=== PATIENT | female | born 1995 | race American Indian/Alaskan Native ===

== ENCOUNTER 2022-01-27 09:05 | Emergency (ER) | payer MEDICAID ==
[2022-01-27 09:58] LABS: Bilirubin,Urine NEG (Negative); Blood,Urine SM (Negative); Color,Urine Yellow (Yellow); Urobilinogen,Urine < 2.0 mg/dL (<2.0); WBC,Urine < 1.0 /HPF (0.0-6.0)
[2022-01-27 10:06] LABS: RBC,Urine < 1.0 /HPF (0.0-6.0)
[2022-01-27] MEDS ORDERED: MORPHINE 4 MG/1 ML INJ IV ONE (12:30)
[2022-01-27] MEDS ORDERED: ONDANSETRON 4 MG/2 ML INJ IV ONE (12:31)
[2022-01-27 13:29] LABS: Hematocrit 38.3 % (30.3-42.9); Hemoglobin 12.4 gm/dl (10.1-14.3); Mean Corpuscular HGB Conc 33 % (30-34); Mean Corpuscular Volume 86 fl (79-97); Platelet Count 224 K/mm3 (140-440); Red Blood Count 4.45 M/mm3 (3.65-5.03); Red Cell Distribution Width 13.1 % (13.2-15.2)
[2022-01-27 13:52] LABS: Alanine Aminotransferase 12 units/L (7-56); Albumin 4.2 g/dL (3.9-5); Blood Urea Nitrogen 10 mg/dL (7-17); Calcium 9.9 mg/dL (8.4-10.2); Hemolysis Index 7
[2022-01-27 13:53] LABS: BUN/Creatinine Ratio 14
--- NOTE | 2022-01-27 13:53 | Cat Scan Report ---
CT ABDOMEN AND PELVIS WITHOUT CONTRAST INDICATION / CLINICAL INFORMATION: Left lower quadrant and left flank pain. TECHNIQUE: All CT scans at this location are performed using CT dose reduction for ALARA by means of automated exposure control. COMPARISON: None available. FINDINGS: ABDOMEN: The liver, spleen, gallbladder, bile ducts, pancreas, adrenal glands and kidneys demonstrate no significant abnormality. There is no evidence of urinary tract calculus or hydronephrosis. There is a moderate amount of stool in the right colon. I see no evidence of bowel obstruction, wall thickening or free air. No adenopathy is present. No acute vascular abnormality is seen. The lung bas es are clear. PELVIS: The distal ureters and urinary bladder are normal. The uterus and ovaries are normal in [facility]. A normal appendix is present and there is no evidence of diverticulitis. No abnormal mass or f luid collection is seen. There is no evidence of hernia. No significant osseous abnormality is presen t. IMPRESSION: No acute abnormality is identified. Signer Name: Ever Coker MD Signed: 01/27/2022 1:48 PM Workstation Name: [id number]
[2022-01-27] MEDS ORDERED: cefTRIAXone/NS 1 GM/50 ML 1 GM/50 ML BAG IV ONE (13:59)
[2022-01-27] MEDS ORDERED: KETOROLAC 30 MG/1 ML INJ IV ONE (13:59)
--- NOTE | 2022-01-27 14:04 | Emergency Department Report ---
ED Abdominal Pain HPI - General Chief Complaint: Abdominal Pain Stated Complaint: LT SIDE PAIN/POSS UTI Time Seen by Provider: 01/27/22 12:29 Source: patient Mode of arrival: Ambulatory Limitations: No Limitations - History of Present Illness Initial Comments: 26-year-old black female with no past medical history presents to the emergency department for evaluation of several day history of worsening left lower back pain, left flank pain, and left lower abdominal pain. She states that about 1 week ago she had some dysuria so she took some Azo that seem to have relieved the symptoms but a few days ago she started to develop above-mentioned symptoms. She denies nausea, vomiting, diarrhea, dysuria, fever, and vaginal discharge. She states that pain is 8 out of 10 at its worse and is intermittent and very sharp. MD Complaint: abdominal pain, flank pain -: Gradual, days(s) (2-3) Location: LLQ, L flank Radiation: none Migration to: no migration Severity: severe Severity scale (0 -10): 10 Quality: aching Consistency: intermittent Associated Symptoms: denies: nausea, vomiting, diarrhea, fever, chills, dysuria, hematemesis, hematochezia, melena, hematuria, anorexia, syncope - Related Data LMP (females 10-50): unknown Previous Rx's Medication Instructions Recorded Last Taken Type Amoxicillin/K Clav Tab [Augmentin 1 tab PO BID #20 tab 01/27/22 Unknown Rx 875 mg] Naproxen [Naprosyn] 500 mg PO BID #14 tab 01/27/22 Unknown Rx Allergies Allergy/AdvReac Type Severity Reaction Status Date / Time No Known Allergies Allergy Verified 01/27/22 09:13 ED Review of Systems ROS: Stated complaint: LT SIDE PAIN/POSS UTI Other details as noted in HPI Comment: All other systems reviewed and negative Constitutional: denies: chills, fever Eyes: denies: vision change ENT: denies: congestion Respiratory: denies: cough, orthopnea, shortness of breath, SOB with exertion, SOB at rest, stridor, wheezing Cardiovascular: denies: chest pain, palpitations, dyspnea on exertion, orthopnea, edema, syncope, paroxysmal nocturnal dyspnea Gastrointestinal: abdominal pain. denies: nausea, vomiting, diarrhea, constipation, hematemesis, melena, hematochezia Genitourinary: denies: urgency, dysuria Musculoskeletal: back pain. denies: arthralgia, myalgia Skin: denies: rash, lesions Neurological: denies: headache, weakness, numbness, paresthesias, confusion, abnormal gait ED Past Medical Hx - Medications Home Medications: Home Medications Medication Instructions Recorded Confirmed Last Taken Type Amoxicillin/K Clav Tab [Augmentin 1 tab PO BID #20 tab 01/27/22 Unknown Rx 875 mg] Naproxen [Naprosyn] 500 mg PO BID #14 tab 01/27/22 Unknown Rx ED Physical Exam - General Limitations: No Limitations General appearance: alert, in no apparent distress - Head Head exam: Present: atraumatic, normocephalic - Eye Eye exam: Present: normal appearance. Absent: conjunctival injection - Neck Neck exam: Present: normal inspection, full ROM. Absent: tenderness, lymphadenopathy - Respiratory Respiratory exam: Present: normal lung sounds bilaterally. Absent: respiratory distress, wheezes, rales, rhonchi, stridor, chest wall tenderness - Cardiovascular Cardiovascular Exam: Present: tachycardia, normal heart sounds - GI/Abdominal GI/Abdominal exam: Present: soft, tenderness (Left lower quadrant), guarding, normal bowel sounds. Absent: distended, rebound, rigid - Extremities Exam Extremities exam: Present: normal inspection, full ROM, normal capillary refill. Absent: tenderness, pedal edema, joint swelling, calf tenderness - Back Exam Back exam: Present: normal inspection, full ROM, tenderness, CVA tenderness (L). Absent: CVA tenderness (R) (Left lower), vertebral tenderness - Neurological Exam Neurological exam: Present: alert, oriented X3, normal gait - Psychiatric Psychiatric exam: Present: normal affect, normal mood - Skin Skin exam: Present: warm, dry, intact, normal color ED Course Vital Signs 01/27/22 09:10 Temperature 98.2 F Pulse Rate 105 H Respiratory 16 Rate Blood Pressure 107/76 [Left] O2 Sat by Pulse 100 Oximetry ED Medical Decision Making - Lab Data Result diagrams: 01/27/22 13:07 01/27/22 13:07 - Radiology Data Radiology results: report reviewed, image reviewed CT abdomen pelvis without contrast: FINDINGS: ABDOMEN: The liver, spleen, gallbladder, bile ducts, pancreas, adrenal glands and kidneys demonstrate no significant abnormality. There is no evidence of urinary tract calculus or hydrone phrosis. There is a moderate amount of stool in the right colon. I see no evidence of bowel obstruction, wall thickening or free air. No adenopathy is present. No acute vascular abnormality is seen. The lung bases are clear. PELVIS: The distal ureters and urinary bladder are normal. The uterus and ovari es are normal in appearance. A normal appendix is present and there is no evidence of diverticulitis. No abnormal mass or fluid collection is seen. There is no evidence of hernia. No significant osseous abnormality is present. IMPRESSION: No acute abnormality is identified. - Medical Decision Making 26-year-old black female with no past medical history presents to the emergency department for evaluation of several day history of worsening left lower back pain, left flank pain, and left lower abdominal pain. She states that about 1 week ago she had some dysuria so she took some Azo that seem to have relieved the symptoms but a few days ago she started to develop above-mentioned symptoms. She denies nausea, vomiting, diarrhea, dysuria, fever, and vaginal discharge. She states that pain is 8 out of 10 at its worse and is intermittent and very sharp. Elevated WBC count, urine positive for UTI, and CT scan without any acute abnormalities noted. Patient noted to have CVA tenderness on exam. Patient will be treated with Rocephin 1 g IV followed by 10-day course of Augmentin at home. Pain treated with morphine 4 mg IV Toradol 15 mg IV, and Zofran 4 mg IV. Pain resolved. Patient will be discharged home with naproxen to use as needed for pain. She is advised to take medications as prescribed and follow-up with primary care provider if no improvement or worsening symptoms. She is advised to return to the emergency department for any concerning symptoms. She verbalizes understanding of and agreement with plan of care. Critical care attestation.: If time is entered above; I have spent that time in minutes in the direct care of this critically ill patient, excluding procedure time. ED Disposition Clinical Impression: UTI (urinary tract infection) Qualifiers: Urinary tract infection type: acute cystitis Hematuria presence: with hematuria Qualified Code(s): N30.01 - Acute cystitis with hematuria Disposition: HOME / SELF CARE / HOMELESS Is pt being admited?: No Does the pt Need Aspirin: No Condition: Stable Instructions: Abdominal Pain (ED), Antibiotic Medicine, Adult, [id number], Urinary Tract Infection, Adult, [id number] Additional Instructions: Take medications as prescribed. Increase intake of noncaffeinated fluids. Follow-up with primary care provider if no improvement or worsening symptoms. Return to the emergency department for any concerning symptoms. Prescriptions: Amoxicillin/K Clav Tab [Augmentin 875 mg] 1 tab PO BID #20 tab Naproxen [Naprosyn] 500 mg PO BID #14 tab Referrals: REINALDO MARTIN MD [Staff Physician] - 3-5 Days Forms: Work/School Release Form(ED) Time of Disposition: 14:11
[2022-01-27] MEDS ORDERED: LIDOCAINE-MPF (1%) 10 MG/1 ML VIAL 5 ML INFILTRATI ONE (14:19)
[2022-01-27] MEDS ORDERED: KETOROLAC 10 MG TAB PO ONE (14:20)
[2022-01-27 14:42] VITALS: BP 119/69
== END 2022-01-27 14:34 | disposition home or self-care (01) ==
LOC: ED 09:05
DX: N39.0 Urinary tract infection, site not specified (principal)
CPT/HCPCS: 36415; 74176; 80053; 81001; 84702; 85027; 96372; 96374; 96375; 99284; J0696; J2270; J2405; J3490